=== PATIENT | female | born 1970 | race African-American/Black ===

== ENCOUNTER 2018-11-15 08:46 | Observation (INO) ==
--- NOTE | 2018-11-05 16:12 | PAT Medication Instructions ---
Medication Instructions Date of Service November 05, 2018 Home Medications albuterol sulfate [Ventolin HFA] 2 puff INHALATION QID PRN amlodipine 5 mg PO DAILY atorvastatin 20 mg PO DAILY carvedilol 25 mg PO BID clonazepam 0.5 mg PO TID PRN duloxetine 60 mg PO DAILY ibuprofen 800 mg PO TID PRN insulin asp prt-insulin aspart [Novolog Mix 70-30 U-100 Insuln] 26 unit SUBCUT QAM insulin asp prt-insulin aspart [Novolog Mix 70-30FlexPen U-100] 28 unit SUBCUT QPM losartan-hydrochlorothiazide 1 tab PO DAILY medroxyprogesterone [Depo-Provera] 150 mg IM UD zolpidem [Ambien CR] 12.5 mg PO HS PRN Continue as directed medroxyprogesterone [Depo-Provera] 150 mg IM UD ASK your surgeon for instructions ibuprofen 800 mg PO TID PRN DO NOT take the morning of surgery losartan-hydrochlorothiazide 1 tab PO DAILY Take morning of surgery With a small sip of water, OTHERWISE NOTHING TO EAT OR DRINK AFTER MIDNIGHT: albuterol sulfate [Ventolin HFA] 2 puff INHALATION QID PRN (use if needed; please bring with you to hospital day of surgery if possible) amlodipine 5 mg PO DAILY atorvastatin 20 mg PO DAILY carvedilol 25 mg PO BID clonazepam 0.5 mg PO TID PRN (if needed) duloxetine 60 mg PO DAILY Take evening before surgery albuterol sulfate [Ventolin HFA] 2 puff INHALATION QID PRN (if needed) carvedilol 25 mg PO BID clonazepam 0.5 mg PO TID PRN (if needed) insulin asp prt-insulin aspart [Novolog Mix 70-30FlexPen U-100] 28 unit SUBCUT QPM zolpidem [Ambien CR] 12.5 mg PO HS PRN (if needed) Insulin Dependent Diabetic Patients * Test your blood sugar the morning of surgery * If Blood Sugar is GREATER THAN 150, take HALF of your regular dose of: insulin asp prt-insulin aspart [Novolog Mix 70-30 U-100 Insuln] take 13 units * If Blood Sugar is LESS THAN 150, DO NOT TAKE ANY: insulin asp prt-insulin aspart [Novolog Mix 70-30 U-100 Insuln] Other Notes If you have any questions please call us at [phone] or [phone] or [phone] or [phone]
--- NOTE | 2018-11-06 11:59 | Anesthesiology Consultation ---
Date of Service November 06, 2018 Assessment & Plan (1) Encounter for pre-operative examination: - PCP: 11/06/18: "She's cleared. The lab results are abnormal but it's due to her diabetes. She is stable for surgery." - Check BSG, AM DOS - Elevated HGBA1C (11.1%) and glucose (242) on preop labs: surgeon made aware. Per patient, unable to take Insulin 70/30 without foot therefore will not be able to take AM DOS per our typical protocol. Discussed with Dr. Ortiz: rec ommendation for patient to discuss with PCP regarding preop insulin instructions. Surgeon made aware of significantly elevated HGBA1C/glucose with potential for cancellation AM DOS. - Pseudotumor cerebri diagnosed during workup for migraines-- discussed botox/LP- patient refused; PCP/neurology monitoring. Also, remotely told heart murmur 10+ years ago in which workup revealed "hole in heart" ? spontaneous closure (no murmur noted on PAT exam 11/06/18 but distant heart sounds). Per patient, told by PCP nothing further needed in regards to this as patient does not have audible murmur. No recent ECHOs. Discussed case with Dr. Ortiz, keaton to proceed with surgery as scheduled without further evaluation. Chart Review Chart Review: Acceptable Risk for Surgery (pending AM DOS labs) and Patient seen in Pre Admission Testing Teaching & Discussion Pre-Anesthesia Teaching/Discussion Notes: Instructed NPO after midnight before surgery,except medications with 15 cc of water. Medication instructions provided according to the PAT guidelines. History Surgery Operation Date: 11/15/18 12:00 Proposed Procedures p Robotic Assisted Total Laparoscopic Hysterectomy, Bilateral Salpingectomy, Possible Total Abdominal Hysterectomy and Cystoscopy - Yoselin Melendez Height/Weight Height: 5 ft 6 in Weight: 152.8 kg Allergies Allergy/AdvReac Type Severity Reaction Status Date / Time cat dander Allergy Intermediate asthma Verified 11/06/18 11:52 exacerbation garlic Allergy Intermediate cough, Verified 11/06/18 11:52 "choking" Iodinated Contrast- Oral and Allergy Intermediate Hives Verified 11/02/18 08:51 IV Dye shellfish derived Allergy Intermediate Hives Verified 11/02/18 08:51 Medications Home Medications Medication Instructions Recorded Confirmed Last Taken albuterol sulfate [Ventolin HFA] 2 puff INHALATION QID PRN 08/16/19 08/16/19 Unknown amlodipine 5 mg PO DAILY 11/02/18 11/02/18 Unknown atorvastatin 20 mg PO DAILY 11/02/18 11/02/18 Unknown carvedilol 25 mg PO BID 11/02/18 11/02/18 Unknown clonazepam 0.5 mg PO TID PRN 11/02/18 11/02/18 Unknown duloxetine 60 mg PO DAILY 11/02/18 11/02/18 Unknown ibuprofen 800 mg PO TID PRN 11/02/18 11/02/18 Unknown insulin asp prt-insulin aspart 26 unit SUBCUT QAM 11/02/18 11/02/18 Unknown [Novolog Mix 70-30 U-100 Insuln] insulin asp prt-insulin aspart 28 unit SUBCUT QPM 11/02/18 11/02/18 Unknown [Novolog Mix 70-30FlexPen U-100] losartan-hydrochlorothiazide 1 tab PO DAILY 11/02/18 11/02/18 Unknown medroxyprogesterone [Depo-Provera] 150 mg IM UD 11/02/18 11/02/18 Unknown zolpidem [Ambien CR] 12.5 mg PO HS PRN 11/02/18 11/02/18 Unknown Past Medical History Medical History Anemia in setting of fibroids Anxiety Asthma stable Depression Diabetes mellitus, type 2 IDDM Gastroparesis Heart murmur remotely told heart murmur 10+ years ago in which workup revealed "hole in heart" ? spontaneous closure (no murmur noted on PAT exam 11/06/18 but distant heart sounds). Per patient, told by PCP nothing further needed in regards to this as patient does not have audible murmur. No recent ECHOs. Hyperlipidemia Hypertension Migraine Morbid obesity OCD (obsessive compulsive disorder) Post traumatic stress disorder Pseudotumor cerebri diagnosed during workup for migraines-- discussed botox/LP- patient refused; PCP/neurology monitoring Uterine fibroid Exercise / Class Metabolic Activity III < 4 Walking/Shop/Light housework Past Family History Family History Grandmother (Maternal) Family history of diabetes mellitus Past Surgical History Surgical History History of cataract surgery RIGHT EYE History of myomectomy History of tooth extraction Past Anesthesia History No Hx of Anesthesia Complications and No Family Hx of Anesthesia Complications History of PONV No Hx of PONV and No Hx of Motion Sickness Social History Smoking Status: Never smoker Do You Dip or Chew Tobacco: No Hx Alcohol Use: Yes alcohol intake frequency: holidays/special occasions only Hx Substance Use: No substance use type: does not use Review of Systems Rare reflux. Remote hx palpitations (no recent issues). Patient denies chest pain, shortness of breath, cough, wheezing. Physical Exam Vital Signs VITALS BP 144/85 P 93 TEMP 98.2 SP02 98%RA RESP 18 PHYSICAL Full neck and c-spine range of motion. Full TMJ range of motion. TMD 3.5 finger breaths Mallampati Score 3 Dentition: missing molars Lungs: clear throughout to auscultation Cardiac: regular rate and rhythm, no murmurs noted, distant heart sounds Spine: normal Carotid arteries: negative bruit Extremities: no edema Testing Laboratory Results 11/06/18 12:44 Blood Type B Positive 11/06/18 12:44 Antibody Screen NEGATIVE 11/06/18 12:44 11/05/18 WBC 6.17 H/H 10.6/35.9 PLATELETS 307 HGBA1C 11.1% (surgeon made aware)*
[2018-11-06 13:49] LABS: BUN Creatinine Ratio 10.5 (10-20); Calcium 8.6 mg/dl (8.5-10.1); Creatinine Clr Calc Pharmacy 105.2 ml/min; Est GFR (African American) 76.4; Est GFR (Non-African American) 65.9; Potassium 3.4 mmol/L (3.5-5.1)
[~2018-11-15 08:46] MED LIST: BUPIVACAINE 0.5 % 5 MG/1 ML MPF 30ML VIAL ONE; CEFAZOLIN 3000MG 65 ML IV SCH; LR 15ML/HR IV SCH
--- NOTE | 2018-11-15 09:15 | History & Physical Bridge Note ---
Date of Service November 15, 2018 History & Physical Bridge Note I have examined the patient, reviewed the History & Physical and in the interval since the performance of the History & Physical I have noted the following changes of clinical significance: no changes noted
[2018-11-15] MEDS ORDERED: MIDAZOLAM HCL 1 MG/ML 2ML VIAL ONE (09:23)
[2018-11-15] MEDS ORDERED: fentaNYL citrate 100 MCG/2 ML VIAL ONE (09:23)
[2018-11-15] MEDS ORDERED: HYDROmorphone INJ 2 MG/ML SYR/VIAL ONE (10:57)
[2018-11-15] MEDS ORDERED: ROCURONIUM BROMIDE 10 MG/ML 5 ML VIAL ONE ×2 (11:37→14:06)
[2018-11-15] MEDS ORDERED: TISSEEL FIBRIN SEALANT 10ML TOP ONE (12:56)
[2018-11-15] MEDS ORDERED: CEFAZOLIN 250 MG/ML 1 GM VIAL ONE (13:32)
[2018-11-15] MEDS ORDERED: CEFAZOLIN 3000MG/72.5 ML BAG IV SCH (13:45)
--- NOTE | 2018-11-15 13:51 | Operative Report ---
Post Operative Report Pre & Post Diagnosis Operation Date: 11/15/18 10:00 Pre-Op Diagnosis: Abnormal Uterine Bleeding, Symptomatic Uterine Fibroids Procedure Operation Date: 11/15/18 10:00 Actual Procedures p Robotic Assisted Total Laparoscopic Hysterectomy, Bilateral Salpingectomy, with Enterolysis and Lysis of Adhesions, Cystoscopy - Yoselin Melendez Surgeon Fan Kulkarni, DO Banking Teacher Dr. Melendez Estimated Blood Loss 5 Findings Consistent with Post-Op Diagnosis Specimens none Description of Procedure Please see Dr. Melendez's full operative report. I was requested to come in the room for an intraoperative consult. The patient was already intubated and up in stirrups with the laparoscope and trochars in the abdomen. Some of the abdominal adhesions had already been lysed but I was requested to help with bowel that was tightly adhesed to the uterus itself. I scrubbed into the case. I had to add 1 additional left lower quadrant 5 mm trocar. There was small bowel as well as sigmoid and omentum attached to the undersurface of the uterus as well as the left lateral side. It took quite some time and was a tedious dissection. We used equal amounts of blunt dissection sharp scissor lysis and harmonic scalpel. We had to take down some omentum which was attached to the uterus again as well as small and large bowel. We continued to use traction countertraction blunt dissection sharp lysis and harmonic scalpel until eventually we were able to free up all of the bowel and omentum from the undersurface and lateral side of the uterus. I ran the colon backwards from the rectum to the splenic flexure and the distal half of the small bowel. I did not identify any injury to the serosa or enterotomies did no other gross abnormalities were seen. At this point I scrubbed back out of the case and turned the case back over to Dr. Melendez. I attest to the content of the Intraoperative Record and any orders documented therein. Any exceptions are noted below.
[2018-11-15] MEDS ORDERED: PHENYLEPHRINE 100MCG/ML 5ML SYR ONE (14:06)
[2018-11-15] MEDS ORDERED: NEOSTIGMINE METHYLSULFATE 5 MG/5 ML SYR ONE (14:06)
[2018-11-15] MEDS ORDERED: ePHEDrine sulfate 50 MG/ML AMP IV PRN (14:56)
[2018-11-15] MEDS ORDERED: HYDROmorphone INJ 1 MG/ML SYRINGE IV PRN (14:56)
[2018-11-15] MEDS ORDERED: ATROPINE SULFATE 0.1 MG/ML 10ML SYR IV PRN (14:56)
[2018-11-15] MEDS ORDERED: ONDANSETRON INJ 2 MG/ML 2 ML VIAL IV PRN ×2 (14:56→17:27)
[2018-11-15] MEDS ORDERED: ONDANSETRON INJ 2 MG/ML 2 ML VIAL ONE (15:31)
[2018-11-15] MEDS ORDERED: LIDOCAINE HCL 2% 2 ML VIAL/AMP(20MG/ML) INFIL ONE (15:31)
[2018-11-15] MEDS ORDERED: PROPOFOL IV EMULSION 10 MG/ML 20 ML VIAL IV ONE (15:31)
[2018-11-15] MEDS ORDERED: GLYCOPYRROLATE 0.2 MG/ML VIAL ONE (15:33)
--- NOTE | 2018-11-15 16:10 | Post Operative Brief Note ---
Immediate Post Op Note v1 Date of Surgery November 15, 2018 Pre & Post Diagnosis Operation Date: 11/15/18 10:00 Pre-Op Diagnosis: Abnormal Uterine Bleeding, Symptomatic Uterine Fibroids Post-Op Diagnosis: Abnormal Uterine Bleeding, Symptomatic Uterine Fibroids Procedure Operation Date: 11/15/18 10:00 Actual Procedures p Robotic Assisted Total Laparoscopic Hysterectomy Lysis of Adhesions, Cystoscopy, with Enterolysis - Yoselin Melendez Surgeon Yoselin Melendez Digital Design Engineer Dr. Melendez Estimated Blood Loss 50 Findings Consistent with Post-Op Diagnosis Drains Hernandez Catheter (16fr hernandez catheter inserted by Dr. Melendez at start of case without difficulty. Clear yellow urine obtained, anesthesia to monitor, discontinued at end of surgery)
[2018-11-15] MEDS ORDERED: KETOROLAC 30 MG/ML VIAL ONE (16:24)
[2018-11-15] MEDS: fentaNYL citrate 100 MCG/2 ML VIAL IV PRN ×2 (16:35→16:40)
--- NOTE | 2018-11-15 16:51 | Operative Report ---
Post Operative Report Pre & Post Diagnosis Operation Date: 11/15/18 10:00 Pre-Op Diagnosis: Abnormal Uterine Bleeding, Symptomatic Uterine Fibroids Post-Op Diagnosis: Abnormal Uterine Bleeding, Symptomatic Uterine Fibroids Procedure Operation Date: 11/15/18 10:00 Actual Procedures p Robotic Assisted Total Laparoscopic Hysterectomy Lysis of Adhesions, Cystoscopy, with Enterolysis - Yoselin Melendez Surgeon Yoselin Melendez Keyboard Instrument Repairer Dari Mcqueen PA-C Estimated Blood Loss 50 Findings See Below 1. 8 cm anteverted fibroid uterus 2. Bowel adhesions to the anterior abdominal wall 3. Omentum covered the entire fundus of the uterus and bilateral sidewalls 4. Small bowel adhered to the left lateral uterine body and posterior uterus. 5. Normal appearing ovaries bilaterally after lysis of adhesions and enterolysis 6. Fallopian tubes appeared within normal limits after lysis of adhesions and enterolysis, however fimbrae not visualized and scarred into the pelvic sidewall bilaterally 7. Lower uterine segment adhered to the bladder 8. Posterior cul-de-sac within normal limits after lysis of adhesions and enterolysis 9. Adhesions of the liver to the anterior abdominal wall (Chong Shantanu Ralph) 10. Appendix not visualized 11. On cystoscopy, normal appearing bladder dome, free of lesions or suture 12. Brisk bilateral efflux of urine by ureteral orifices Fluids See Anesthesia Report Specimens Uterus and cervix Drains Hernandez catheter removed prior to the end of the case Anesthesia Type General Complications none None Indications 48 yo with an enlarged fibroid uterus and heavy menstrual bleeding with irregular cycles. Previously used Mirena IUD which spontaneously expelled. Currently on depo provera but bleeding ensues after 9 weeks of injection. Patient desires definitive surgical management via hysterectomy. Description of Procedure Under GA in the dorsal lithotomy position, the patient was prepped and drapped in the usual sterile fashion. Beginning at the vagina, a hernandez catheter was inserted under sterile conditions and left in situ for the remainder of the case. A weighted speculum was then placed in the vagina and with the help of a right angle retractor the cervix was visualized and grasped anteriorly with a single tooth tenaculum. The uterus was sounded to 8 cm with a uterine sound. The cervical os was dilated. An [employer] uterine manipulator with a metal cup was inserted. The weighted speculum was then removed. Attention was then turned to the abdomen. 0.5% bupivicaine solution was used for infiltration of all port sites. Beginning in the supraumbilical area, the skin was first infiltrated with ~ 2 cc of the bupivicaine solution, then a 12 mm incision was made through the skin with a #11 blade. Direct entry with a 12 mm trocar, sleeve, and 10 mm laparoscope was made into the peritoneal cavity. At this time, patient had inadequate positioning on the operating bed. Due to body habitus, Patient's buttocks was sliding off of the operating table. Decision was made to remove trocar, contact lifting team, and appropriately reposition the Patient. The patient was once again prepped and drapped in the usual sterile fashion. Direct entry with a 12 mm trocar, sleeve, and 10 mm laparoscope was made into the peritoneal cavity. The opening pressure was < 8 mmHg. The peritoneal cavity was insufflated with CO2 gas to a maximum pressure of 20 mmHg. Examination of the peritoneal cavity revealed no signs of injury from entry and the above noted findings. The patient was then placed in steep Trendelenburg. Four more ports were then placed. The 12 mm port was then placed in the right upper quadrant, and there were three 8 mm ports that were placed 10 cm laterally to the umbilicus and 2 cm inferiorly. All trocars were placed under direct visualization with no inadvertent damage to underlying structures. The RICARDO Harmonic was then used to grasp, coagaulate and cut the omental adhesions to the anterior abdominal wall. Working along the right pelvic side wall, omental adhesions were excised with the RICARDO Harmonic allowing visualization of the right adenxal region. Hemostasis was noted. Attention was then turned to the left side and small bowel was noted to be adhered to the left lateral uterine wall and the posterior uterine body. At this time an in traoperative consult was made to General Surgery. Dr. Kulkarni presented to the OR and proceeded with lysis of adhesions and enterolysis. Please see operative report from General Surgery. After Dr. Kulkarni completed his portion of the procedure, the uterus was visualized and normal anatomy restored. The [employer] robot was then docked in the normal fashion. The right fallopian tube was cauterized using the PK bipolar cautery and was ligated using the hot gavin. The utero-ovarian ligament was also coagulated and cut. The round ligament was coagulated and cut. A bladder flap was created with the hot gavin and the bladder was dissected down from the cervix. This entire procedure was then repeated on the left side. On the left side the adnexal was adhered to the left uterine body and the adhesions was excised with the [employer] Harmonic, free the left adnexal from the uterus. Once the bladder was appropriately dissected free from the lower anterior uterine segment and the tissues skeletonized, the uterine arteries were bilaterally clamped and ligated. Pedicles were checked and hemostatic. At the level of the metal cup of the uterine manipulator, the vaginal vault was incised circumferentially with a monopolar scissors. The uterus and cervix was delivered through the vagina via vaginal excision with a scalpel. Specimen was sent to pathology. Bilateral fallopian tubes were note remove due to the adhesions and non-visualization of the fimbrea. A vaginal occluder was then placed into the vagina to form a pneumatic seal and all the pedicles as well as the cuff edges were examined and hemostatic. The vaginal vault was then closed with a V-Loc barbed stitch being sure to avoid the bladder lateral pedicles. Following vault closure, an inspection of all areas was made to ensure hemostasis. The [employer] robot was undocked. The fascia of the 12 mm supraumbilical and right upper quadrant ports were closed with a Ko Catherine used 0 Vicryl. All other ports were removed under direct visualization and hemostasis noted. All the incision sites were then closed with 4-0 monocryl sutures in a subcuticular fashion and dermabond. The vaginal occluder and hernandez catheter were removed. Cystoscopy was then performed with a 70 degree scope. Normal appearing bladder dome. Bladder was free of lesions or sutures. Brisk bilateral efflux of urine by the ureteral orifices. The bladder was drained and the cystoscope removed without incident. At the end of the procedure, all sponges, instruments, and sharps were counted and correct. Estimated blood loss was 50 ml. The patient was taken to recovery in stable condition. I attest to the content of the Intraoperative Record and any orders documented therein. Any exceptions are noted below.
--- NOTE | 2018-11-15 17:03 | Anesthesiology Progress Note ---
Date of Service November 15, 2018 Anesthesia Post Procedure Vital Signs Vital Signs: Temp Pulse Pulse Resp BP BP Pulse Ox 11/15/18 16:50 73 14 150/87 H 100 11/15/18 16:40 80 15 140/80 100 11/15/18 16:30 83 12 142/87 H 100 11/15/18 16:20 83 14 126/95 100 11/15/18 16:10 86 16 126/87 100 11/15/18 09:20 36.6 C 88 20 163/101 H 96 Pain Intensity Abdomen: Pain Intensity: 4 Transfer of Care Handoff Completed per policy Notes Mental Status: alert / awake / arousable Patient Amnestic to Procedure: Yes Nausea / Vomiting: adequately controlled Pain: adequately controlled Airway Patency, RR, SpO2: stable & adequate BP & HR: stable & adequate Hydration State: stable & adequate Anesthetic Complications: no major complications apparent
[2018-11-15] MEDS ORDERED: clonazePAM 0.5 MG TAB PO PRN (17:27)
[2018-11-15] MEDS ORDERED: ALBUTEROL HFA 8 GM INHALER INH PRN (17:27)
[2018-11-15] MEDS ORDERED: CONSULT PHARMACY STA (17:27)
[2018-11-15] MEDS ORDERED: ZOLPIDEM TARTRATE 10 MG TAB PO PRN (17:27)
[2018-11-15] MEDS ORDERED: OXYCODONE/ACETAMINOPHEN 5mg/325mg TAB PO PRN (17:27)
[2018-11-15] MEDS ORDERED: PHARMACY GLYCEMIC MGMT CONSULT PRN (17:52)
[2018-11-15] MEDS ORDERED: INSULIN HUMAN NPH SC ONE (18:15)
[2018-11-15] MEDS: INSULIN ASPART 100 UNITS/ML 3 ML PEN SC SCH ×2 (19:19→21:18)
[2018-11-15] MEDS: ACETAMINOPHEN 325 MG TAB PO SCH (19:39)
[2018-11-15] MEDS: IBUPROFEN 600 MG TAB PO SCH (19:39)
[2018-11-15] MEDS: SIMETHICONE 80 MG CHEW PO SCH (19:40)
[2018-11-15] MEDS: DOCUSATE SODIUM 100 MG CAP PO SCH (20:39)
[2018-11-15] MEDS: CARVEDILOL 25 MG TAB PO SCH (20:39)
[2018-11-16] MEDS: INSULIN ASPART 100 UNITS/ML 3 ML PEN SC SCH ×4 (00:18→12:39)
[2018-11-16] MEDS: IBUPROFEN 600 MG TAB PO SCH ×3 (00:21→11:59)
[2018-11-16] MEDS: SIMETHICONE 80 MG CHEW PO SCH ×3 (00:21→11:59)
[2018-11-16] MEDS: ACETAMINOPHEN 325 MG TAB PO SCH ×3 (00:27→12:00)
[2018-11-16 07:53] LABS: Eosinophils # (auto) 0.01 K/uL (0-0.5); Eosinophils % (auto) 0.1 %; Hemoglobin 8.7 g/dL (12.0-16.0); Immature Granulocytes # (auto) 0.02 K/uL (0.00-0.02); Immature Granulocytes % (auto) 0.2 %; Lymphocytes # (auto) 1.65 K/uL (1.2-3.4); Lymphocytes % (auto) 15.2 %; Mean Corpuscular Hgb Conc 31.1 g/dL (32-36); Mean Corpuscular Volume 70.7 fL (80-100); Mean Platelet Volume 10.4 fL (7.4-10.4); Monocytes # (auto) 0.81 K/uL (0.11-0.59); Monocytes % (auto) 7.5 %; Neutrophils # (auto) 8.38 K/uL (1.4-6.5); Platelet Count 248 K/uL (130-400); RDW Coefficient of Variation 16.9 % (11.5-14.5); RDW Standard Deviation 43.4 fL (36.4-46.3); Red Blood Count 3.96 M/uL (4.2-5.4); White Blood Count 10.87 K/uL (4.8-10.8)
--- NOTE | 2018-11-16 08:14 | Anesthesiology Progress Note ---
Date of Service November 16, 2018 Anesthesia Post Procedure Vital Signs Vital Signs: Temp Pulse Pulse Pulse Resp BP BP 11/16/18 03:57 36.6 C 92 H 18 150/96 H 11/16/18 01:29 89 157/94 H 11/16/18 00:15 36.6 C 94 H 18 160/98 H 11/15/18 20:20 36.5 C 84 18 137/80 11/15/18 19:20 36 C L 80 18 167/109 H 11/15/18 18:20 35.8 C L 72 18 164/109 H 11/15/18 17:50 35.5 C L 68 18 148/95 H 11/15/18 17:20 34.5 C L 77 16 141/90 H 11/15/18 17:00 36.1 C L 86 14 130/95 11/15/18 16:50 73 14 150/87 H 11/15/18 16:40 80 15 140/80 11/15/18 16:30 83 12 142/87 H 11/15/18 16:20 83 14 126/95 11/15/18 16:10 86 16 126/87 11/15/18 09:20 36.6 C 88 20 163/101 H Pulse Ox Pulse Ox 11/16/18 03:57 11/16/18 01:29 11/16/18 00:15 11/15/18 20:20 100 11/15/18 19:20 96 11/15/18 18:20 100 11/15/18 17:50 100 11/15/18 17:20 100 100 11/15/18 17:00 97 11/15/18 16:50 100 11/15/18 16:40 100 11/15/18 16:30 100 11/15/18 16:20 100 11/15/18 16:10 100 11/15/18 09:20 96 Pain Intensity Abdomen: Pain Intensity: 5 Notes Mental Status: alert / awake / arousable and participated in evaluation Patient Amnestic to Procedure: Yes Nausea / Vomiting: adequately controlled Pain: adequately controlled Airway Patency, RR, SpO2: stable & adequate BP & HR: stable & adequate Hydration State: stable & adequate Anesthetic Complications: see Notes below and Pt Satisfied with anesthetic care Notes: pt c/o numbness in bilateral feet & legs as well as weakness yesterday (11/15). States this morning the numbness only remains in anterior/medial aspects of right upper and lower leg. Left leg and bilateral feet sensation has returned. Denies weakness in bilateral legs/feet today. Dr. Cordova made aware. Will continue to follow up with pt.
[2018-11-16] MEDS: DOCUSATE SODIUM 100 MG CAP PO SCH (08:17)
[2018-11-16] MEDS: CARVEDILOL 25 MG TAB PO SCH (08:17)
[2018-11-16] MEDS ORDERED: INSULIN HUMAN NPH SC SCH (08:30)
--- NOTE | 2018-11-16 08:36 | Discharge Summary ---
Date of Service November 16, 2018 Admission HPI Per Admitting Provider Uterine Fibroids, Abnormal Uterine bleeding for several years, difficulty with hormonal control. Admission Exam (Per Admitting) Constitutional WD/WN, vitals as above + morbidly obese ENMT Mouth: no TMJ abnormality and oral opening not small Mallampati Class: III Neck normal visual inspection; neck extension not limited Respiratory normal respiratory effort, lungs clear to auscultation normal respiratory effort Auscultation: lungs clear to auscultation bilaterally Cardiovascular RRR, no murmur, no edema Rate/Rhythm: regular rate and regular rhythm Heart Sounds: no murmur Gastrointestinal (Abdomen) Inspection/Auscultation: abdomen normal to inspection and normal bowel sounds Neurologic moves all extremities Psychiatric Orientation: alert and oriented x 3 Discharge Data Procedures Performed Operation Date: 11/15/18 10:00 Actual Procedures p Robotic Assisted Total Laparoscopic Hysterectomy, Lysis of Adhesions, with Enterolysis - [facility] s Cystoscopy - [facility] Hospital Course (1) Encounter for pre-operative examination: (2) Uterine fibroid: s/p Robotic assisted TLH/JANINE/Enterolysis/Cystoscopy. POD#1. Patient meeting discharge criteria. Discharge home with medications and instructions. (3) Heavy menstrual bleeding: s/p Robotic assisted TLH/JANINE/Enterolysis/Cystoscopy (4) S/P hysterectomy: Discharge Instructions POST OPERATIVE: BOWEL FUNCTION/MEDICATIONS: 1. Constipation pain and discomfort are the most common complaints 5-7 days after surgery. Points 2-6 address the things that can help. 2. Chewing gum can help stimulate the gut and help improve digestion and motility. You will also be prescribed Gas X (Simethicone) to take every 6 hours, please do so for 1-2 weeks. 3. Milk of Magnesia 1-2 times per day until return of bowel function. 4. Colace is a stool softener that helps. Taking this 2-3 times per day until bowel function returns to normal is highly recommended. This will also be prescribed for you. 5. Dulcolax is a laxative that may be used if several days have passed without a bowel movement. Alternatively Miralax may be used daily instead. 6. Drink plenty of fluids as this will also reduce constipation. 7. Narcotic pain medications will be prescribed by your physician. They are safe to use and we encourage you to use them. If you are not allergic, ibuprofen and tylenol will also be prescribed. Please take these, every 6 hours, together, for the first 1-2 weeks after your sugery. Please take with food or milk. Many patients will be able to transition off of the narcotic medications to ibuprofen by postoperative day 3. ACTIVITY RECOMMENDATIONS: 1. Get plenty of rest and listen to your body. If you are tired, take a nap. 2. You may shower, but do not take a tub bath until you see your doctor at the 2 week post operative visit. 3. Absolutely NO intercourse and nothing in the vagina until you are examined by your doctor at the 6 week visit. At that visit it will be determined when such activities can be resumed. This can range from 6-12 weeks after your surgery depending on healing time. 4. The main physical activity in the first week should be walking. By the second week you can slowly increase activity. There are no limits on walking up and down stairs. 5. Do not lift more than 5-10 lbs for 4 weeks. Remember the "one-handed rule", i.e. if you can lift something with only one hand it's likely okay. 6. Minimize telesales advisor like vacuuming and exercising for 4 weeks. "Overdoing it" can lead to incisions not healing, pain and vaginal bleeding, so again, listen to your body. 7. Driving can be resumed when you feel able. Do not drive within 24 hours of taking a narcotic medication. EXPECTATIONS: 1. Vaginal spotting, bleeding and discharge are common after surgery. There may even be an odor to the discharge which is often related to sutures used in the vagina. If you experience heavy vaginal bleeding, call the office number day or night [phone]. 2. Bladder discomfort is common after surgery from the catheter. This usually resolves in 1-2 weeks. 3. By the end of the 3rd or 4th week you should be feeling much better. It may take up to 6 weeks for your energy levels to return to normal. 4. Narcotic medications have side effects such as: dizziness, headache, nausea and/or vomiting. If you suspect your pain medication is causing problems, call our office and we may be able to prescribe an alternate medication. 5. The skin incisions are often covered with a liquid bandage. This will gradually peel off over time. CALL THE OFFICE IF YOU HAVE ANY OF THE FOLLOWIN. Temperature of 101 degrees or higher. 2. Severe abdominal or pelvic pain not relieved by pain medication. 3. Persistent nausea or vomiting. 4. Increased pain with urination or difficulty urinating. 5. Bright red bleeding that soaks more than 1 pad per hour. CONTACT PHONE NUMBERS: Main Office: [phone] Avoid all tobacco products. If you need help to stop smoking, call [place]'s FREE QUITLINE at . This is a free call. Supervising Physician Co-Signing Physician Notes Yoselin Melendez MD
--- NOTE | 2018-11-16 08:36 | Gynecologic Progress Note ---
Date of Service November 16, 2018 Assessment & Plan (1) Uterine fibroid: s/p Robotic assisted TLH/JANINE/Enterolysis/Cystoscopy. POD#1. Patient meeting discharge criteria. Discharge home with medications and instructions. Present on Admission?: Yes (2) Heavy menstrual bleeding: s/p Robotic assisted TLH/JANINE/Enterolysis/Cystoscopy Present on Admission?: Yes (3) S/P hysterectomy: Present on Admission?: No Subjective s/p Robotic assisted total laparoscopic hysterectomy, lysis of adhesions, enterolysis, and cystoscopy. POD #1. Patient with no complaints. Tolerating diabetic diet. Ambulating and urinating without difficulty. Denies flatus. Denies N/V, fevers, chills, SOB or CP. Review of Systems Review of Systems: All systems reviewed & are unremarkable except as noted in HPI & below Physical Exam Constitutional: WD/WN, vitals as above Respiratory: normal respiratory effort, lungs clear to auscultation Cardiovascular: RRR, no murmur, no edema Gastrointestinal (Abdomen): Inspection/Auscultation: abdomen normal to inspection and normal bowel sounds Appropriately tender to palpation at incision sites. Incisions: C/D/I. No erythema or edema Results & Data Vital Signs (Past 12 Hours) Vital Signs Temp Pulse Resp BP 11/16/18 03:57 36.6 C 92 H 18 150/96 H 11/16/18 01:29 89 157/94 H 11/16/18 00:15 36.6 C 94 H 18 160/98 H
[2018-11-16 08:37] LABS: Estimated Average Glucose 266 mg/dl; Hemoglobin A1C 10.9 % (4.5-5.6)
[2018-11-16] MEDS ORDERED: ATORVASTATIN 20 MG TAB PO SCH (09:00)
[2018-11-16] MEDS ORDERED: LOSARTAN/HCTZ 50/12.5MG TAB PO SCH (09:00)
[2018-11-16] MEDS ORDERED: DULOXETINE HCL 60 MG CAP PO SCH (09:00)
[2018-11-16] MEDS ORDERED: AMLODIPINE BESYLATE 5 MG TAB PO SCH (09:00)
== END 2018-11-16 13:12 | disposition home or self-care (01) ==
LOC: ASU 08:46 → 4N 08:46
DX: E66.01 Morbid (severe) obesity due to excess calories; F41.9 Anxiety disorder, unspecified; E11.9 Type 2 diabetes mellitus without complications; Z68.43 Body mass index [BMI] 50.0-59.9, adult; N93.9 Abnormal uterine and vaginal bleeding, unspecified; Z79.899 Other long term (current) drug therapy; Z91.041 Radiographic dye allergy status; Z91.018 Allergy to other foods; Z79.4 Long term (current) use of insulin; N84.0 Polyp of corpus uteri; F32.9 Major depressive disorder, single episode, unspecified; E78.5 Hyperlipidemia, unspecified; I10 Essential (primary) hypertension; D25.9 Leiomyoma of uterus, unspecified; Z91.013 Allergy to seafood